=== PATIENT | male | born 1935 | race Caucasian/White ===

== ENCOUNTER 2017-05-01 15:55 | Emergency (ER) | payer MEDICARE, MEDICAID ==
[~2017-05-01] VITALS: Ht 152.4 cm; Wt 56.7 kg
[~2017-05-01 15:55] MED LIST: ASPI81TA31 PO; CRESTOR PO; DIOVAN PO; GLUCOPHAGE PO; PRANDIN PO
[2017-05-01] MEDS ORDERED: TDAP DIPH,PERTUSS,TET VAC/PF 0.5 ML DISP.SYRIN IM ONE (16:15)
[2017-05-01] MEDS ORDERED: NEOMY/BACITRA/POLYMYXIN B OINT UD PACKET TP ONE ×2 (16:15→16:46)
--- NOTE | 2017-05-01 16:32 | NUR ---
Patient discharged to home in stable conditon. Written and verbal after care instructions given. Patient verbalizes understanding of instructions.
== END 2017-05-01 16:34 | disposition home or self-care (01) ==
LOC: ER 15:56
DX: S51.811A Laceration without foreign body of right forearm, initial encounter (principal); I10 Essential (primary) hypertension; E11.9 Type 2 diabetes mellitus without complications; M19.90 Unspecified osteoarthritis, unspecified site; Z79.82 Long term (current) use of aspirin; X58.XXXA Exposure to other specified factors, initial encounter; Y93.89 Activity, other specified; Y92.89 Other specified places as the place of occurrence of the external cause; Y99.8 Other external cause status
CPT/HCPCS: A4663

== ENCOUNTER 2017-07-21 21:01 | Emergency (ER) | payer MEDICARE, MEDICAID ==
[~2017-07-21] VITALS: Ht 152.4 cm; Wt 60.8 kg
[2017-07-21] MEDS ORDERED: ALLOPURINOL 100 MG (22:18)
[2017-07-21] MEDS ORDERED: PIOGLITAZONE 30 MG (22:18)
--- NOTE | 2017-07-21 22:47 | NUR ---
Patient discharged to home in stable conditon. Written and verbal after care instructions given. Patient verbalizes understanding of instructions.
== END 2017-07-21 22:47 | disposition home or self-care (01) ==
LOC: ER 21:02
DX: S90.414A Abrasion, right lesser toe(s), initial encounter (principal); I10 Essential (primary) hypertension; E11.9 Type 2 diabetes mellitus without complications; M19.90 Unspecified osteoarthritis, unspecified site; Z79.82 Long term (current) use of aspirin; X58.XXXA Exposure to other specified factors, initial encounter; Y93.89 Activity, other specified; Y92.89 Other specified places as the place of occurrence of the external cause; Y99.8 Other external cause status
CPT/HCPCS: A4217; A4663

== ENCOUNTER 2021-12-14 18:05 | Emergency (ER) | payer MEDICARE, MEDICAID ==
[~2021-12-14] VITALS: Ht 152.4 cm; Wt 54.4 kg
[~2021-12-14 18:05] MED LIST changes: +ALLOPURINOL 100 MG; +PIOGLITAZONE 30 MG
--- NOTE | 2021-12-14 18:15 | NUR ---
MD at bedside, medical screening exam in progress.
[2021-12-14 18:49] VITALS: BP 145/70
--- NOTE | 2021-12-14 18:49 | NUR ---
Patient discharged to home in stable condition. Written and verbal after care instructions given to pt and relative. Patient verbalizes understanding of instructions. Stressed follow up or return to ER for worsening s/s.
== END 2021-12-14 18:50 | disposition home or self-care (01) ==
LOC: ER 18:08
DX: H91.92 Unspecified hearing loss, left ear (principal); I10 Essential (primary) hypertension; E11.9 Type 2 diabetes mellitus without complications; Z79.899 Other long term (current) drug therapy; Z79.84 Long term (current) use of oral hypoglycemic drugs; M19.90 Unspecified osteoarthritis, unspecified site; Z79.82 Long term (current) use of aspirin
CPT/HCPCS: A4663

== ENCOUNTER 2024-07-28 12:17 | Emergency (ER) | payer MEDICARE, OTHER ==
[~2024-07-28] VITALS: Ht 162.6 cm; Wt 72.6 kg
[2024-07-28] MEDS ORDERED: OXYB15TA19 PO (12:34)
[2024-07-28] MEDS ORDERED: SITA1TAB2 PO (12:34)
[2024-07-28] MEDS ORDERED: LEVO88TA2 PO (12:34)
[2024-07-28] MEDS ORDERED: ROSU10TA2 PO (12:34)
[2024-07-28] MEDS ORDERED: LINA145C PO (12:34)
[2024-07-28] MEDS ORDERED: SACU1TAB7 PO (12:34)
[2024-07-28] MEDS ORDERED: DAPA10TA PO (12:34)
[2024-07-28] MEDS ORDERED: ASPI-869 PO (12:34)
[2024-07-28] MEDS ORDERED: REPA2TAB10 PO (12:34)
[2024-07-28] MEDS ORDERED: FURO20TA4 PO (12:34)
[2024-07-28] MEDS ORDERED: ESOM40CA PO (12:34)
[2024-07-28] MEDS ORDERED: ESCI5TAB16 PO (12:34)
[2024-07-28 13:08] LABS: BASOPHILS % (AUTO) 0.4 % (0.0-2.0); EOSINOPHILS % (AUTO) 0.2 % (0.0-7.0); HEMOGLOBIN 8.9 g/dL (12.5-16.3); LYMPHOCYTES # (AUTO) 0.8 K/uL (0.8-4.8); LYMPHOCYTES % (AUTO) 12.8 % (20.5-51.5); MEAN CORPUSCULAR HEMOGLOBIN 29.2 uug (23.8-33.4); MEAN CORPUSCULAR HGB CONC 33 g/dL (32.5-36.3); MEAN CORPUSCULAR VOLUME 89.2 fL (73.0-96.2); MONOCYTES # (AUTO) 0.4 K/uL (0.1-1.30); MONOCYTES % (AUTO) 5.5 % (0.0-11.0); NEUTROPHILS # (AUTO) 5.4 K/uL (1.8-8.9); NEUTROPHILS % (AUTO) 81.1 % (38.5-71.5); PLATELET COUNT (AUTO) 316 K/uL (152-348); RED BLOOD CELL COUNT(AUTO) 3.03 MIL/uL (4.06-5.63); RED CELL DISTRIBUTION WIDTH 16.4 % (12.1-16.2); WHITE BLOOD COUNT (AUTO) 6.6 K/uL (3.6-10.2)
[2024-07-28 13:09] LABS: DIFFERENTIAL COMMENT 1
[2024-07-28 13:16] LABS: CALCIUM 8.8 mg/dL (8.5-10.1); CARBON DIOXIDE 22 mmol/L (21-32); CHLORIDE 108 mmol/L (98-107); GLUCOSE 174 mg/dL (74-106); SODIUM SERUM 143 mmol/L (136-145); UREA NITROGEN, BLOOD 25 mg/dL (7-18)
[2024-07-28 13:29] LABS: ALANINE AMINOTRANSFERASE 22 U/L (16-63); ALBUMIN 3.4 g/dL (3.4-5.0); ALKALINE PHOSPHATASE 75 U/L (50-136); ASPARTATE AMINOTRANSFERASE 37 U/L (15-37); BILIRUBIN,DIRECT 0.3 mg/dL (0.0-0.2); BILIRUBIN,TOTAL 1.2 mg/dL (0.2-1.0); NT-PRO BNP 606 pg/mL (0-125); TOTAL PROTEIN, SERUM 7.1 g/dL (6.4-8.2)
[2024-07-28] MEDS ORDERED: PRED50TA PO (14:02)
[2024-07-28] MEDS ORDERED: predniSONE 50 MG TABLET ONE (14:18)
[2024-07-28] MEDS: predniSONE 50 MG TABLET PO ONE (14:24)
[2024-07-28 15:32] VITALS: BP 142/59; O2SAT 99
== END 2024-07-28 15:33 | disposition home or self-care (01) ==
LOC: ER 12:17
DX: M19.031 Primary osteoarthritis, right wrist (principal); R07.9 Chest pain, unspecified; D53.9 Nutritional anemia, unspecified; E11.9 Type 2 diabetes mellitus without complications; E78.5 Hyperlipidemia, unspecified; I11.0 Hypertensive heart disease with heart failure; I50.9 Heart failure, unspecified; I25.10 Atherosclerotic heart disease of native coronary artery without angina pectoris; N40.0 Benign prostatic hyperplasia without lower urinary tract symptoms; Z79.52 Long term (current) use of systemic steroids; Z79.82 Long term (current) use of aspirin; Z79.84 Long term (current) use of oral hypoglycemic drugs; Z79.890 Hormone replacement therapy; Z79.899 Other long term (current) drug therapy; Z95.2 Presence of prosthetic heart valve
CPT/HCPCS: 29125; 36415; 71045; 73080; 73110; 80048; 80076; 83880; 84484; 85025; 85651; 85730; 93005; 99285; J7512; A4606; A4663